=== PATIENT | female | born 1960 | race Caucasian/White ===

== ENCOUNTER 2018-06-07 06:16 | Day surgery (SDC) | payer OTHER ==
[2018-06-07] MEDS ORDERED: DEXAMETHASONE 4 MG/ML 1 ML INJ ×2 (07:09→07:44)
[2018-06-07] MEDS ORDERED: BUPIVACAINE 0.5% (SDV) 30 ML INJ (07:09)
[2018-06-07] MEDS ORDERED: CEFAZOLIN 1 GM INJ (07:20)
[2018-06-07] MEDS ORDERED: LIDOCAINE 2% (SDV) 5 ML INJ (07:20)
[2018-06-07] MEDS ORDERED: PROPOFOL 40 ML (07:20)
[2018-06-07] MEDS ORDERED: FENTAnyl 50 MCG/ML VIAL (07:21)
[2018-06-07] MEDS ORDERED: MIDAZOLAM 1 MG/ML 2 ML INJ (07:21)
[2018-06-07] MEDS ORDERED: LIDOCAINE 2% (MDV) 20 ML INJ (07:24)
[2018-06-07] MEDS ORDERED: POLYMYXIN/BACITRACIN 1L IRRIG (07:25)
[2018-06-07] MEDS ORDERED: LABETALOL HCL 20MG INJ IV (07:30)
[2018-06-07] MEDS ORDERED: HYDROmorphONE 1 MG/5 ML IV SYRINGE IV ×2 (07:30)
[2018-06-07] MEDS ORDERED: DIPHENHYDRAMINE 50 MG INJ IV (07:30)
[2018-06-07] MEDS ORDERED: OXYCODONE/ACETAMINOPHEN (5/325) TAB PO ×2 (07:30)
[2018-06-07] MEDS ORDERED: ONDANSETRON 4 MG INJ IV (07:30)
[2018-06-07] MEDS ORDERED: ALBUTEROL 0.083% (NEB) 2.5 MG/3 ML AMP HHN (07:30)
[2018-06-07] MEDS ORDERED: FENTAnyl 50 MCG/ML VIAL IV ×2 (07:30)
[2018-06-07] MEDS ORDERED: MEPERIDINE 25 MG INJ IV (07:30)
[2018-06-07] MEDS ORDERED: morphine (1 MG/ML) 10ML SYRINGE IV ×2 (07:30)
[2018-06-07] MEDS ORDERED: FAMOTIDINE 20 MG INJ (07:44)
[2018-06-07] MEDS ORDERED: ONDANSETRON 4 MG INJ (07:44)
[2018-06-07] MEDS: POLYMYXIN/BACITRACIN 1L IRRIG IRR (07:55)
[2018-06-07] MEDS: BUPIVACAINE 0.5% 30 ML VIAL INJ (07:55)
[2018-06-07] MEDS ORDERED: PHENYLephrine (100 MCG/ML) 5ML SYG (08:14)
[2018-06-07] MEDS ORDERED: KETOROLAC 30 MG INJ (08:16)
== END 2018-06-07 11:51 | disposition home or self-care (01) ==
LOC: SDS 06:16
DX: M20.11 Hallux valgus (acquired), right foot (principal); M21.611 Bunion of right foot
CPT/HCPCS: 28297; 73630